=== PATIENT | female | born 2000 | race Caucasian/White ===

== ENCOUNTER 2020-08-21 10:04 | Emergency (ER) | payer OTHER, SELFPAY ==
[2020-08-21 10:10] VITALS: BP 137/85; PULSE 89; RESP 17; TEMP 36.9; O2SAT 99
--- NOTE | 2020-08-21 10:23 | ED.LOWEXIN ---
HPI - Extremity Injury (Lower) General Chief Complaint: Extremity Injury, Lower Stated Complaint: L ankle injury, fell down stairs Time Seen by Provider: 08/21/20 10:15 Source: patient Mode of arrival: ambulatory Limitations: no limitations History of Present Illness HPI Narrative: This young woman comes in after falling and twisting her left ankle. She reportedly fell down some stars. She states she had moderately severe sharp pain at that time in her left ankle in the area of the medial malleolus. It has let up. She feels better now, but felt she should be evaluated. She requests a note for work. Type of Injury: blunt Place: home Severity: mild Relieving factors: other (pain relief with time and rest spontaneously) Exacerbating factors: weight bearing Related Data Home Medications Medication Instructions Recorded Confirmed No Home Medications 08/21/20 08/21/20 Allergies Allergy/AdvReac Type Severity Reaction Status Date / Time pomegranate Allergy Rash Verified 08/21/20 10:16 Review of Systems Constitutional: Constitutional: Reports no additional constitutional complaints Eyes: Eyes: Reports no additional eye complaints ENT: Reports system reviewed and no additional complaints, except as documented Cardiovascular: Cardiovascular: Reports no additional cardiovascular complaints Respiratory: Respiratory: Reports no additional respiratory complaints Gastrointestinal: Gastrointestinal: Reports no additional gastrointestinal complaints Genitourinary: Genitourinary: Reports no additional female genitourinary complaints Musculoskeletal: Musculoskeletal: Reports no additional musculoskeletal complaints Integumentary/Breasts: Skin/Breast: Reports system reviewed and no additional complaints, except as docu Neurologic: Reports system reviewed and no additional complaints, except as documented Psychiatric: Psychiatric: Reports no additional psychiatric complaints Endocrine: Endocrine: Reports no additional endocrine complaints Hematologic/Lymphatic: Hematologic/Lymphatic: Reports no additional hematologic/lymphatic complaints Allergic/Immunologic: Allergic/Immunologic: Reports no additional allergic/immunologic complaints [facility] Past Medical History Medical History No significant medical problems Surgical History Surgical History History of tonsillectomy Family History Family History (Updated 08/22/20 @ 03:01 by German Stevens MD) Mother Depression Anxiety disorder Father Diabetes mellitus Depression Anxiety Osteoarthritis Social History Social History (Updated 08/22/20 @ 03:02 by German Stevens MD) Smoking status: Never smoker Alcohol use details: minimal alcohol use Substance use: current Substance use type: marijuana Sexual Orientation (if Verbalized by the Patient): Straight or Heterosexual Exam Const: General: no acute distress Orientation/consciousness: patient oriented x3 HENMT: Head: normal to inspection Ears: external ears normal and TM's normal bilaterally General nose exam: Normal external nose present Face and sinus: normal facial exam Mouth: Yes Normal oral and palatal mucosa present Throat: posterior oropharynx normal Eyes: Conjunctivae: conjunctivae normal Neck: Neck: normal visual inspection Chest: Chest palpation & inspection: normal inspection of the chest Resp: Effort & Inspection: normal respiratory effort Auscultation: clear to auscultation bilaterally Cardio: Rate: regular rate Rhythm: regular rhythm GI: GI Palp: Yes Soft to palpation (nontender) Skin: General skin exam: normal color Neuro: General: patient oriented x3 and moves all extremities Extrem: General: normal to inspection Other: Exam to left foot and ankle appear within normal limits Psych: Appearance: grossly normal Mental Status: mental status grossly norm
== END 2020-08-21 10:40 | disposition home or self-care (01) ==
PROVIDERS: Emergency Provider Emergency Medicine; PCP Internal Medicine
DX: S93.402A Sprain of unspecified ligament of left ankle, initial encounter (principal); W10.9XXA Fall (on) (from) unspecified stairs and steps, initial encounter
CPT/HCPCS: 99282

== ENCOUNTER 2021-03-18 10:19 | Outpatient (CLI) | payer OTHER, SELFPAY ==
[2021-03-18 11:40] LABS: SARS-CoV-2 RNA PCR Positive (Negative)
== END 2021-03-18 10:20 | disposition home or self-care (01) ==
LOC: CHSLAB 10:22
PROVIDERS: PCP Internal Medicine; Visit Provider Internal Medicine
DX: U07.1 COVID-19 (principal); R05.9 Cough, unspecified; R09.89 Other specified symptoms and signs involving the circulatory and respiratory systems; J06.9 Acute upper respiratory infection, unspecified
CPT/HCPCS: C9803; U0003; U0005

== ENCOUNTER 2023-02-01 07:26 | Outpatient (CLI) | payer OTHER, SELFPAY ==
--- NOTE | ~2023-02-01 | MR_ITS ---
EXAMINATION: MR pituitary wo/w con DATE: 02/01/2023 08:34 INDICATION: Hyperprolactinemia. TECHNIQUE: Magnetic resonance imaging (MRI) of the brain and brainstem was performed without and with 20 mL MultiHance intravenous contrast. COMPARISON: None. FINDINGS: The pituitary is normal in size with height of 6 mm and concave superior margin. There is n o intracranial hemorrhage, acute infarction, or abnormal intracranial mass lesion. There are 3 foci o f increased T2-weighted signal intensity in the cerebral white matter, which is normal for age. The v entricles are normal in size. There is mild mucosal thickening in the ethmoid sinuses. The orbits are normal. The mastoid air cells are normal. IMPRESSION: 1. Normal brain. Normal pituitary. Reviewed, dictated and finalized at location E.
== END 2023-02-01 07:27 | disposition home or self-care (01) ==
LOC: CHSIMG 07:27
PROVIDERS: PCP Internal Medicine; Visit Provider Obstetrics & Gynecology Gynecology
DX: E22.1 Hyperprolactinemia (principal)
CPT/HCPCS: 70553; A9577